=== PATIENT | male | born 1980 | race African-American/Black ===

== ENCOUNTER 2021-04-26 08:14 | Emergency (ER) | payer OTHER ==
[~2021-04-26 08:14] MED LIST: BACTRIM DS TAB1 EACH PO
[2021-04-26 09:01] LABS: HEMOGLOBIN 14.1 gm/dl (14.0-17.5); RED BLOOD COUNT 4.61 M/UL (4.20-5.50); WHITE BLOOD COUNT 4.8 K/UL (4.5-11.0)
[2021-04-26 09:31] LABS: BUN/CREATININE RATIO 14 (0-10)
[2021-04-26] MEDS ORDERED: OMEPRAZOLE40 MG PO (10:03)
== END 2021-04-26 10:39 | disposition home or self-care (01) ==
LOC: ER1 08:14
PROVIDERS: Family Medicine
DX: R10.13 Epigastric pain (principal); R10.32 Left lower quadrant pain; R10.31 Right lower quadrant pain; F17.290 Nicotine dependence, other tobacco product, uncomplicated; I10 Essential (primary) hypertension
CPT/HCPCS: 80053; 81001; 82272; 83690; 85025; 96374; 96375; 99284; C9113; J2405

== ENCOUNTER 2021-07-02 07:25 | Emergency (ER) | payer OTHER ==
[~2021-07-02 07:25] MED LIST changes: +OMEPRAZOLE40 MG PO
== END 2021-07-02 10:00 | disposition home or self-care (01) ==
LOC: ER1 07:25
DX: U07.1 COVID-19 (principal); I10 Essential (primary) hypertension; Z86.19 Personal history of other infectious and parasitic diseases
CPT/HCPCS: 96372; 99284; J1885; U0002

== ENCOUNTER 2021-12-15 09:39 | Emergency (ER) | payer OTHER ==
[2021-12-15 10:55] LABS: HEMOGLOBIN 14.1 gm/dl (14.0-17.5); RED BLOOD COUNT 4.74 M/UL (4.20-5.50); WHITE BLOOD COUNT 4.7 K/UL (4.5-11.0)
[2021-12-15 11:15] LABS: BUN/CREATININE RATIO 11 (0-10)
== END 2021-12-15 12:05 | disposition home or self-care (01) ==
LOC: ER1 09:39
PROVIDERS: Physician Assistant
DX: R10.10 Upper abdominal pain, unspecified (principal); F17.200 Nicotine dependence, unspecified, uncomplicated; R11.2 Nausea with vomiting, unspecified
CPT/HCPCS: 80053; 81001; 82150; 83690; 85025; 93005; 96374; 96375; 99284; J1885; J2405; Q9967

== ENCOUNTER → 2022-05-19 | Outpatient (CLI) | payer OTHER | LOC: NM 08:53 | DX: R10.11 Right upper quadrant pain (principal) | CPT/HCPCS: 78226; A9537 ==

== ENCOUNTER 2022-05-31 06:43 | Emergency (ER) | payer OTHER ==
[2022-05-31] MEDS ORDERED: MEDROL DOSEPAK 24 MG PO (08:00)
== END 2022-05-31 08:14 | disposition home or self-care (01) ==
LOC: ER1 06:43
DX: T65.831A Toxic effect of fiberglass, accidental (unintentional), initial encounter (principal); L23.5 Allergic contact dermatitis due to other chemical products; E78.5 Hyperlipidemia, unspecified; Z86.19 Personal history of other infectious and parasitic diseases; F17.290 Nicotine dependence, other tobacco product, uncomplicated
CPT/HCPCS: 96372; 99282; J2930

== ENCOUNTER 2022-06-13 17:53 | Emergency (ER) | payer OTHER ==
[~2022-06-13 17:53] MED LIST changes: +MEDROL DOSEPAK 24 MG PO
== END 2022-06-13 20:20 | disposition home or self-care (01) ==
LOC: ER1 17:53
DX: J06.9 Acute upper respiratory infection, unspecified (principal); F17.290 Nicotine dependence, other tobacco product, uncomplicated; Z20.822 Contact with and (suspected) exposure to COVID-19
CPT/HCPCS: 0240U; 99283